=== PATIENT | female | born 1965 | race Caucasian/White ===

== ENCOUNTER 2022-03-02 09:11 | Outpatient (CLI) | payer OTHER, SELFPAY | END 2022-03-02 09:12 | disposition home or self-care (01) | LOC: MRI 09:12 | PROVIDERS: PCP Family Medicine; Visit Provider Orthopaedic Surgery Sports Medicine | DX: M25.562 Pain in left knee (principal); M94.262 Chondromalacia, left knee; M23.222 Derangement of posterior horn of medial meniscus due to old tear or injury, left knee; M22.42 Chondromalacia patellae, left knee; M25.462 Effusion, left knee ==

== ENCOUNTER 2022-03-02 10:58 | Outpatient (RCR) | payer OTHER, SELFPAY | END 2022-06-19 11:48 | disposition home or self-care (01) | PROVIDERS: PCP Family Medicine; Visit Provider Obstetrics & Gynecology | DX: M76.891 Other specified enthesopathies of right lower limb, excluding foot (principal); Z51.89 Encounter for other specified aftercare | CPT/HCPCS: 97162 ==

== ENCOUNTER 2022-03-03 09:10 | Outpatient (CLI) | payer OTHER, SELFPAY ==
--- NOTE | 2022-03-03 09:15 | MR_ITS ---
[address] [address] Phone:?[phone] Fax:?[phone] Referring Physician Information: Ari Buitrago M.D. [address] [facility] [address] Phone:?[phone] Fax:?[phone] Patient:Ese Hilario D.O.B:?1965 Sex:?Female Phone:?[phone] [facility] MRN:?[id number] Exam Date:?03/02/2022 ? EXAM: MRI EXAMINATION OF THE LEFT KNEE CLINICAL INFORMATION: Left knee pain. No history of surgery to this area. Possible internal derangement. TECHNICAL INFORMATION: Coronal PD and STIR. Axial PD and T2 fat saturation. Sagittal PD and PD fat saturation images acquired. INTERPRETATION: Bones: Minimal subchondral edema signal and cystic change along the peripheral surface of the medial tibial plateau. Few subchondral cystic changes involving the patella. There is no evidence of acute fracture. No other abnormal bone marrow edema pattern is identified. Ligaments and tendons: Residua of a chronic sprain injury and associated mild thickening of the mid to proximal portion of the medial collateral ligament. The iliotibial band, fibular collateral ligament, biceps femoris tendon and popliteus tendon all are intact. The anterior cruciate ligament is intact without acute sprain or tear. The posterior cruciate ligament is intact. Extensor Mechanism: The patellar and quadriceps tendons are intact. The medial and lateral retinacula are intact. Knee Joint: There is a small knee joint effusion. There is a small and slender popliteal cyst. Mild synovitis. There is no evidence for a loose body. Medial Compartment: There are grade 3 to IV chondromalacia along the central weightbearing surfaces of the medial joint compartment. There is additional 5 mm segment of grade IV chondromalacia posterior to the weightbearing surface of the medial femoral condyle. Somewhat irregular and complex tearing involves the posterior body of the medial meniscus. Complex tearing throughout the mid and peripheral one third portion of the posterior horn medial meniscus. There is a 9 mm peripheral intrameniscal cyst at the junction of body and posterior horn. There is an additional mild to moderately truncated appearance of the posterior horn of the meniscus. Series 8 image 25 as well as series 4 image 23 appears to demonstrate a 9 mm far posterior parameniscal cyst. Thickening of the far posterior horn of the meniscus versus adjacent flap fragment formation. Lateral Compartment: There is no evidence for discrete lateral meniscal tear. No displaced flap fragment or parameniscal cyst. Grade 3 to IV chondromalacia involves the far posterior medial surface of the lateral tibial plateau. No other significant changes of chondromalacia. Patellofemoral articulation: Grade 3 and IV chondromalacia along the central midline patella and adjacent lateral facet. There is a 7 mm segment of grade III chondromalacia superior to the mid surface of the lateral trochlear groove. CONCLUSION: 1. 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 Additional small segment of grade IV chondromalacia posterior to the weightbearing surface of the femoral condyle. 2. Tearing of the posterior body of the medial meniscus continuing throughout the posterior horn. There is a 9 mm peripheral intrameniscal cyst at the junction of body and posterior horn. Additional 9 mm parameniscal cyst far posteriorly. Thickening of the far posterior horn of the meniscus versus adjacent flap fragment formation. 3. No lateral meniscal tear. Grade III to IV chondromalacia involves the far posterior medial surface of the lateral tibial plateau. 4. Patellofemoral chondromalacia includes grade III and IV changes along the central patella. 5. There is a small joint effusion and popliteal cyst. KES Electronically signed on 03/03/2022 1:53:00 PM by Rustam Ruiz M.D.
== END 2022-03-03 09:11 | disposition home or self-care (01) ==
LOC: MRI 09:11
PROVIDERS: PCP Family Medicine; Visit Provider Family Medicine
DX: M25.562 Pain in left knee (principal); M94.262 Chondromalacia, left knee; M23.222 Derangement of posterior horn of medial meniscus due to old tear or injury, left knee; M22.42 Chondromalacia patellae, left knee; M25.462 Effusion, left knee
CPT/HCPCS: 73721

== ENCOUNTER 2022-06-15 06:22 | Day surgery (SDC) | payer OTHER, SELFPAY ==
[2022-06-15] VITALS (12 sets, daily range): BP systolic 83–129; BP diastolic 52–81; PULSE 51–75; RESP 16; TEMP 36.1–36.7; O2SAT 94–99; BMI 29.0
--- NOTE | 2022-06-15 06:54 | SUR.PREOP ---
Pt postmenopausal. No pre op HCG collected.
[2022-06-15] MEDS: LACTATED RINGERS 1000 ML 1,000 ML 100 ML IV ×2 (07:00→08:37)
[2022-06-15] MEDS: SODIUM CHLORIDE 0.9 % (FLUSH) 10 ML SYRINGE IVF (07:03)
[2022-06-15] MEDS: CEFAZOLIN 2 GM in 0.9 % SODIUM CHLORIDE Mini-bag 100 ML IVPB (07:40)
--- NOTE | 2022-06-15 08:07 | P.ORPRC_ITS ---
Procedure Note Date of procedure: 06/15/22 Procedure: PREOPERATIVE DIAGNOSIS: 1. Left knee medial meniscus tear POSTOPERATIVE DIAGNOSIS: 1. Left knee medial meniscus tear 2. Left knee grade 2-3 chondromalacia medial femoral condyle weight-bearing portion and patella median ridge, respectively PROCEDURE: 1. Left knee arthroscopic partial medial menisectomy SURGEON: Ari Buitrago M.D. SOCIAL MEDIA STRATEGIST: Prem BRADFORD. Of note, an liaison inspection laboratory assistant was critical for this case to aid in patient positioning, knee manipulation, instrument exchange, and closure. ANESTHESIA: Spinal EBL: 2ml TOURNIQUET: 25 minutes at 300 torr COMPLICATIONS: None evident INDICATIONS: The patient is a pleasant 56-year-old female who has experienced left knee pain particularly with any twisting or turning. Physical exam was concerning for medial meniscus tear, this was confirmed on MRI. Additionally, attempted nonoperative management has been tried, and failed. Thus, surgery was recommended. FINDINGS: Grade 2 chondromalacia weight-bearing portion medial femoral condyle with mild loose chondral flaps. Complex tearing the posterior horn to midbody medial meniscus approaching the posterior root. Lateral meniscus was intact. Lateral articular cartilage pristine. Grade 3 chondromalacia patella median ridge. ACL and PCL were intact robust. DESCRIPTION OF PROCEDURE: After a thorough discussion of risks, benefits, and alternatives, the patient was brought to the operating room and placed upon the operating table. Induction of anesthesia was undertaken as previously noted. 2 g IV Ancef was administered within 1 hr of incision preoperatively. Appropriate time-out was performed identifying proper patient, site, and procedure. The left lower extremity was prepped and draped in the appropriate sterile fashion using ChloraPrep. The limb was exsanguinated and tourniquet inflated. Anterolateral and anteromedial portals were established with an 11 blade, and a diagnostic arthroscopy was performed. This identified the findings as noted above. Following the diagnostic arthroscopy, a partial medial menisectomy was performed with the combination of basket forceps and a motorized shaver. Following this, the meniscus was re-probed and found to be stable. Approximately 33-35 % of the overall meniscus required resection. The shaver was utilized for medial femoral condyle chondroplasty of the small loose chondral flaps. At this stage, the shaver was reinserted into the suprapatellar pouch and all remaining meniscal debris was evacuated. Instruments were removed, excess fluid was drained, and closure performed with 4-0 Monocryl with Steri-Strips. Dressings were applied, the tourniquet deflated, and the patient was awoken from anesthesia and transferred to the PACU in stable condition. PLAN: 1. Weightbear as tolerated operative extremity. Crutch / walker ambulation assistance PRN. Straight leg raise to be initiated starting tomorrow by the patient. 2. Ice, acetominophen and/or ibuprofen, and Percocet for pain as needed. 3. Knee range of motion and quad sets/straight leg raise regularly 4. Follow up with PA visit in 7-10 days. for a wound check. Initiate physical therapy at that time
[2022-06-15] MEDS: ROPIVACAINE 0.5% 30 ML 150 MG INJECTION (08:09)
--- NOTE | 2022-06-15 08:17 | W.ANESCHARGE ---
Anesthesia Charges Start Date/Time Anesthesia Start Date: 06/15/22 Anesthesia Start Time: 07:28 Stop Date/Time Anesthesia Stop Date: 06/15/22 Anesthesia Stop Time: 08:20 Summary Emergency: No
--- NOTE | 2022-06-15 08:19 | SUR.PHASEI ---
pt placed in slight trendelumberg due to bp 83/52 fluids increased monitor bp pt denies any dizzy ness
--- NOTE | 2022-06-15 09:28 | W.ANESCHARGE ---
Anesthesia Charges Start Date/Time Anesthesia Start Date: 06/15/22 Anesthesia Start Time: 07:28 Stop Date/Time Anesthesia Stop Date: 06/15/22 Anesthesia Stop Time: 08:20 Summary Emergency: No
[2022-06-15] MEDS: OxyCODONE/APAP 5-325 TABLET 1 TAB PO (09:40)
--- NOTE | 2022-06-15 10:22 | SUR.PHASEII ---
Reviewed discharge instructions with patient. Pt signed and must have taken signed paper home with her. Unable to locate signed discharge information sheet.
== END 2022-06-15 10:05 | disposition home or self-care (01) ==
PROVIDERS: PCP Family Medicine; Visit Provider Orthopaedic Surgery Sports Medicine
PROC: (CPT 29870; principal; 2022-06-15 07:30)
DX: S83.232A Complex tear of medial meniscus, current injury, left knee, initial encounter (principal); M94.262 Chondromalacia, left knee
CPT/HCPCS: 29881; 01400; A9270; J0690; J1100; J2250; J2370; J2400; J2405; J2704; J2795; J3010; J7120

== ENCOUNTER 2023-01-04 07:58 | Outpatient (CLI) | payer OTHER, SELFPAY | END 2023-01-04 07:59 | disposition home or self-care (01) | LOC: NFLDREF 11:06 | PROVIDERS: PCP Family Medicine; Referring Provider Family Medicine; Visit Provider Family Medicine | DX: Z00.00 Encounter for general adult medical examination without abnormal findings (principal); E55.9 Vitamin D deficiency, unspecified; E78.5 Hyperlipidemia, unspecified; R73.03 Prediabetes; R74.01 Elevation of levels of liver transaminase levels; R68.82 Decreased libido; Z13.6 Encounter for screening for cardiovascular disorders | CPT/HCPCS: 80053; 80061; 82306 ==

== ENCOUNTER 2023-02-12 11:53 | Outpatient (CLI) | payer OTHER, SELFPAY | END 2023-02-12 11:54 | disposition home or self-care (01) | PROVIDERS: PCP Family Medicine; Visit Provider Obstetrics & Gynecology | DX: N95.1 Menopausal and female climacteric states (principal); R68.82 Decreased libido; N76.2 Acute vulvitis; E55.9 Vitamin D deficiency, unspecified; E78.5 Hyperlipidemia, unspecified; R73.03 Prediabetes; E66.3 Overweight | CPT/HCPCS: 84270; 84402; 84403; 84443 ==

== ENCOUNTER 2023-07-06 19:33 | Outpatient (CLI) | payer OTHER, SELFPAY ==
--- NOTE | 2023-07-06 19:45 | MR_ITS ---
[address] [address] Phone:?[phone] Fax:?[phone] Referring Physician Information: Ari Buitrago M.D. [address] [facility] [address] Phone:?[phone] Fax:?[phone] Patient:Ese Hilario D.O.B:?1965 Sex:?Female Phone:?[phone] [facility] MRN:?[id number] Exam Date:?07/06/2023 EXAM: MRI of the LEFT KNEE, without contrast CLINICAL INFORMATION: Female, 58 years old, with knee pain. INDICATION: Evaluate for internal derangement. PRIOR SURGERY: History of partial medial meniscectomy PLAIN FILMS: None available. COMPARISONS: Knee MRI 03/13/2022. TECHNICAL INFORMATION: Using a 1.5T MR scanner and a localizing surface coil: sagittals: PD, PDFS coronals: PD, T2FS axials: PD, PDFS SEDATION: None CONTRAST: None FINDINGS: Knee joint: Effusion: Moderate size left knee effusion with synovitis. Popliteal cyst: Moderate sized popliteal cyst, without evidence of rupture Loose bodies: None. Subcutaneous and extra-articular soft tissues: Mild prepatellar subcutaneous soft tissue edema. Ligaments: ACL: Intact ACL anteromedial and posterolateral bundles, without sprain or tear. PCL: Intact PCL, without acute or chronic injury. MCL: Intact MCL superficial and deep layers, without injury. LCL: Intact LCL, without injury. Posterolateral corner: No posterolateral corner soft tissue injury. Popliteus, biceps femoris, iliotibial band, popliteofibular ligament and lateral gastrocnemius are intact. Posteromedial corner: No posteromedial corner soft tissue injury. Semimembranosus, pes anserine tendons and posterior oblique ligament are without injury, tendinopathy or bursitis. Extensor mechanism: Patellar tendon: Intact, without tendinopathy. Mild patella alessandra. Quadriceps tendon: Intact, without tendinopathy. Retinacula: Medial and lateral retinacula are intact. Fat pads: Unremarkable infrapatellar Hoffa's, quadriceps and prefemoral fat pads. Medial compartment: Medial meniscus: Medial meniscus is abnormal in appearance. The body of the meniscus is truncated suggesting residua of prior meniscectomy (coronal series 7 image 16). Superimposed horizontal undersurface tearing along the body segment (coronal series 7 image 18). Highly attenuated, irregular, frayed appearance throughout the posterior body and posterior horn over a length of approximately 2.7 cm. There is thickening of the far posterior horn of the meniscus (sagittal series 6 image 13) versus meniscal flap. The posterior root is at least partially intact. 4 mm peripheral meniscal extrusion at the level of the body. Medial femoral condyle: Grade III chondromalacia along the central weightbearing medial femoral condyle with grade 4 chondral changes posteriorly, advanced on prior exam. Medial tibial plateau: Grade III/IV chondromalacia along the central weightbearing medial tibial plateau. Lateral compartment: Lateral meniscus: Truncation along the apical free edge of the lateral meniscus measuring 5 mm in length (coronal series 7 image 19), unchanged from the prior exam. Lateral femoral condyle: No chondromalacia or osteochondral abnormality. Lateral tibial plateau: Small region of grade III/IV chondromalacia along the posterior lateral tibial plateau (sagittal series 5 image 20). Patellofemoral joint: Patella: Grade III/IV chondromalacia along the inferior and mid central median ridge of the patella, as well as along the superior medial patellar facet and inferior lateral patellar facet Trochlea: Grade III chondromalacia of the lateral trochlea with mild underlying cystic change. Proximal tibiofibular joint: Unremarkable, without evidence of ligament sprain injury, joint effusion or adjacent marrow edema. Bones: No stress/occult fractures or other marrow edema/pathology. IMPRESSION: 1. Suspected changes of partial meniscectomy along the body segment of the medial meniscus. The posterior body and posterior horn are highly attenuated, irregular, and poorly identified which may reflect some degree of postoperative changes, however given this appearance, progressive tearing is suspected. Thickening of the far posterior horn versus meniscal flap. The posterior root is at least partially intact. 4 mm peripheral meniscal extrusion at the level of the body. 2. Short segment truncation along the body segment of the lateral meniscus. 3. Grade III/IV chondromalacia of the medial and patellofemoral compartments as described above. 4. Small region of grade III/IV chondromalacia of the posterior lateral tibial plateau. 5. Moderate-sized joint effusion with synovitis. Moderate sized popliteal cyst. KME Electronically signed on 07/07/2023 2:08:00 PM by Soniya Bajwa M.D.
== END 2023-07-06 19:34 | disposition home or self-care (01) ==
LOC: MRI 19:34
PROVIDERS: PCP Family Medicine; Visit Provider Orthopaedic Surgery Sports Medicine
DX: M25.562 Pain in left knee (principal); M22.42 Chondromalacia patellae, left knee; M25.462 Effusion, left knee; M23.92 Unspecified internal derangement of left knee; Z87.828 Personal history of other (healed) physical injury and trauma; Z98.890 Other specified postprocedural states
CPT/HCPCS: 73721

== ENCOUNTER 2024-11-07 11:27 | Outpatient (CLI) | payer BC, SELFPAY | END 2024-11-07 11:28 | disposition home or self-care (01) | LOC: NFLDREF 11-10 16:32 | PROVIDERS: PCP Family Medicine; Referring Provider Family Medicine; Visit Provider Family Medicine | DX: R74.01 Elevation of levels of liver transaminase levels (principal); E55.9 Vitamin D deficiency, unspecified; E78.5 Hyperlipidemia, unspecified; R73.03 Prediabetes | CPT/HCPCS: 80053; 80061; 82306 ==

== ENCOUNTER 2025-01-04 11:59 | Outpatient (CLI) | payer BC, SELFPAY | END 2025-01-04 12:00 | disposition home or self-care (01) | LOC: NFLDREF 12:00 | PROVIDERS: PCP Family Medicine; Visit Provider Obstetrics & Gynecology | DX: F52.0 Hypoactive sexual desire disorder (principal) | CPT/HCPCS: 84270; 84402; 84403 ==

== ENCOUNTER 2025-01-29 07:46 | Outpatient (CLI) | payer BC, SELFPAY | END 2025-01-29 07:47 | disposition home or self-care (01) | LOC: NFLDREF 01-31 01:59 | PROVIDERS: PCP Family Medicine; Referring Provider Family Medicine; Visit Provider Family Medicine | DX: E78.5 Hyperlipidemia, unspecified (principal) | CPT/HCPCS: 80061 ==

== ENCOUNTER 2025-02-16 11:04 | Day surgery (SDC) | payer BC, SELFPAY ==
[2025-02-16] VITALS (11 sets, daily range): BP systolic 94–140; BP diastolic 69–84; PULSE 47–83; RESP 16; TEMP 36.1–36.7; O2SAT 94–100; BMI 28.3
[2025-02-16] MEDS: LACTATED RINGERS 1000 ML 1,000 ML 100 ML IV (11:15)
[2025-02-16] MEDS: SODIUM CHLORIDE 0.9 % (FLUSH) 10 ML SYRINGE IVF (11:56)
[2025-02-16 11:59] LABS: Hemoglobin* 13.4 gm/dL (12.0-16.0)
--- NOTE | 2025-02-16 12:01 | W.PM.H&PU ---
History & Physical Update History & Physical Update H&P Reviewed and patient assessed: No changes noted
--- NOTE | 2025-02-16 12:33 | P.ANES_ITS ---
Anesthesia Charges Start Date/Time Anesthesia Start Date: 02/16/25 Anesthesia Start Time: 12:00 Stop Date/Time Anesthesia Stop Date: 02/16/25 Anesthesia Stop Time: 13:39 Coding CPT Codes CPT Codes: ANESTH VAGINAL PROCEDURES - 48620 ([id number]) P2 - PATIENT W/MILD SYST DISEASE, QK - FIRE FIGHTING EQUIPMENT SPECIALIST 2-4 CNCRNT ANES PROC, QX - SHUTTLE FILLER SVC W/ MD MED DIRECTION
--- NOTE | 2025-02-16 12:33 | W.ANESCHARGE ---
Anesthesia Charges Start Date/Time Anesthesia Start Date: 02/16/25 Anesthesia Start Time: 12:00 Stop Date/Time Anesthesia Stop Date: 02/16/25 Anesthesia Stop Time: 13:39 Coding CPT Codes CPT Codes: ANESTH VAGINAL PROCEDURES - 25037 ([id number]) P2 - PATIENT W/MILD SYST DISEASE, QK - SENIOR DATA QUALITY ANALYST 2-4 CNCRNT ANES PROC, QX - SENIOR CONTRACTS MANAGER SVC W/ MD MED DIRECTION
[2025-02-16] MEDS: BUPIVACAINE 0.25% 30 ML INJECTION (12:35)
[2025-02-16] MEDS: BACITRACIN OINTMENT BULK TUBE 1 APPLIC TOPICAL (13:24)
--- NOTE | 2025-02-16 13:40 | P.ANES_ITS ---
Anesthesia Charges Start Date/Time Anesthesia Start Date: 02/16/25 Anesthesia Start Time: 12:00 Stop Date/Time Anesthesia Stop Date: 02/16/25 Anesthesia Stop Time: 13:39 Coding CPT Codes CPT Codes: ANESTH VAGINAL PROCEDURES - 46586 ([id number]) P2 - PATIENT W/MILD SYST DISEASE, QK - BUSINESS SERVICES REPRESENTATIVE 2-4 CNCRNT ANES PROC, QX - CARBURIZING FURNACE OPERATOR SVC W/ MD MED DIRECTION
--- NOTE | 2025-02-16 13:40 | W.ANESCHARGE ---
Anesthesia Charges Start Date/Time Anesthesia Start Date: 02/16/25 Anesthesia Start Time: 12:00 Stop Date/Time Anesthesia Stop Date: 02/16/25 Anesthesia Stop Time: 13:39 Coding CPT Codes CPT Codes: ANESTH VAGINAL PROCEDURES - 03546 ([id number]) P2 - PATIENT W/MILD SYST DISEASE, QK - GAS PUMPING STATION SUPERVISOR 2-4 CNCRNT ANES PROC, QX - MANAGER REIMBURSEMENT SVC W/ MD MED DIRECTION
--- NOTE | 2025-02-16 13:56 | P.GYNPRC_ITS ---
Procedure Note Date of procedure: 02/16/25 Will [facility] bill your pro fee for this procedure?: Yes Pre-op diagnosis: Perineal body defect Dyspareunia Post-op diagnosis: Same Procedure: Perineorrphaphy Anesthesia: MAC and spinal Complications: None Surgeon: Nitza Lazar MD Architectural Project Captain: Caren Francisco Estimated blood loss (mL): 30 Pathology: none sent Condition: stable Disposition: same day Findings: Perineal body defect, with slight tearing of skin in the midline anterior perineal body Procedure Description: Patient was taken to the OR with IV running. She was given Cefazolin in preoperative prophylaxis. She had spinal anesthetic. She was prepped and draped in the usual fashion Exam under anesthesia revealed the above-noted findings. The anterior perineal body and posterior fourchette was infiltrated with 10 cc of 1% lidocaine. Allis clamps were placed along the hymeneal ring. All roughly triangular segment of skin was excised sharply beginning at the posterior introitus with point in the anterior perineal skin. Later, additional vaginal tissue was taken out to reach the level of the hymenal ring vaginally. The vaginal epithelium was undermined sharply above the hymeneal ring. The perineal body was then reapproximated with interrupted sutures of 2 0 Vicryl. The perineal skin was reapproximated with 3 0 Vicryl up to the level of the posterior introitus. The vaginal epithelium was then closed anterior to post erior with interrupted sutures of 4 0 Vicryl. Patient tolerated procedure well and was taken recovery area in stable condition.
== END 2025-02-16 15:44 | disposition home or self-care (01) ==
PROVIDERS: PCP Family Medicine; Visit Provider Obstetrics & Gynecology
PROC: 0UQG0ZZ Repair Vagina, Open Approach (ICD-10-PCS; CPT 56810; principal; 2025-02-16 12:00)
DX: N94.10 Unspecified dyspareunia (principal); N90.89 Other specified noninflammatory disorders of vulva and perineum
CPT/HCPCS: 56810; 00940; 36415; 85018; 86850; 86900; 86901; J0665; J0690; J1885; J2250; J2371; J2405; J2704; J7120

== ENCOUNTER 2025-04-10 10:16 | Outpatient (CLI) | payer BC, SELFPAY ==
[2025-04-10 16:26] LABS: Bacterial Vaginosis* Negative (Negative); Candida glab/krus NOT DETECTED (No Detected)
[2025-04-10 16:58] LABS: Chlamydia DNA Amplified* NOT DETECTED (No Detected); GC DNA Amplified* NOT DETECTED (No Detected)
== END 2025-04-10 10:17 | disposition home or self-care (01) ==
PROVIDERS: PCP Family Medicine; Visit Provider Obstetrics & Gynecology
DX: N89.8 Other specified noninflammatory disorders of vagina (principal)
CPT/HCPCS: 81513; 87481; 87491; 87591; 87661

== ENCOUNTER 2025-05-14 07:46 | Outpatient (CLI) | payer BC, SELFPAY | END 2025-05-14 07:47 | disposition home or self-care (01) | LOC: NFLDREF 05-16 09:10 | PROVIDERS: PCP Family Medicine; Referring Provider Family Medicine; Visit Provider Family Medicine | DX: E78.5 Hyperlipidemia, unspecified (principal); E55.9 Vitamin D deficiency, unspecified | CPT/HCPCS: 80061; 82306 ==